=== PATIENT | female | born 1990 | race Caucasian/White ===

== ENCOUNTER → 2023-10-23 07:03 | Outpatient (REF) | payer OTHER, SELFPAY | LOC: PNTC 07:03 | PROVIDERS: ATTENDING PHYSICIAN Obstetrics & Gynecology | DX: O99.210 Obesity complicating pregnancy, unspecified trimester (principal); O43.219 Placenta accreta, unspecified trimester | CPT/HCPCS: 76811; 93976 ==

== ENCOUNTER 2023-11-19 10:47 | Observation (INO) | payer OTHER, SELFPAY ==
[2023-11-19 11:09] VITALS: BP 123/72; BMI 38.0
== END 2023-11-19 12:12 | disposition home or self-care (01) ==
LOC: LDRP 10:47
PROVIDERS: ADMITTING PHYSICIAN Obstetrics & Gynecology; FAMILY PHYSICIAN Family Medicine
DX: O36.8120 Decreased fetal movements, second trimester, not applicable or unspecified (principal); Z3A.24 24 weeks gestation of pregnancy
CPT/HCPCS: G0378

== ENCOUNTER → 2023-11-29 07:11 | Outpatient (REF) | payer OTHER, SELFPAY | LOC: PNTC 07:11 | PROVIDERS: ATTENDING PHYSICIAN Obstetrics & Gynecology | DX: O34.10 Maternal care for benign tumor of corpus uteri, unspecified trimester (principal); O99.210 Obesity complicating pregnancy, unspecified trimester | CPT/HCPCS: 76816 ==

== ENCOUNTER → 2024-01-17 07:06 | Outpatient (REF) | payer OTHER, SELFPAY | LOC: PNTC 07:06 | PROVIDERS: ATTENDING PHYSICIAN Obstetrics & Gynecology | DX: O34.10 Maternal care for benign tumor of corpus uteri, unspecified trimester (principal); O99.210 Obesity complicating pregnancy, unspecified trimester | CPT/HCPCS: 76816 ==

== ENCOUNTER → 2024-01-24 07:05 | Outpatient (REF) | payer OTHER, SELFPAY | LOC: PNTC 07:05 | PROVIDERS: ATTENDING PHYSICIAN Obstetrics & Gynecology | DX: O34.10 Maternal care for benign tumor of corpus uteri, unspecified trimester (principal); O99.210 Obesity complicating pregnancy, unspecified trimester | CPT/HCPCS: 59025; 76815 ==

== ENCOUNTER → 2024-01-31 07:14 | Outpatient (REF) | payer OTHER, SELFPAY | LOC: PNTC 07:14 | PROVIDERS: ATTENDING PHYSICIAN Obstetrics & Gynecology | DX: O99.210 Obesity complicating pregnancy, unspecified trimester (principal) | CPT/HCPCS: 59025; 76815 ==

== ENCOUNTER → 2024-02-07 07:08 | Outpatient (REF) | payer OTHER, SELFPAY | LOC: PNTC 07:08 | PROVIDERS: ATTENDING PHYSICIAN Obstetrics & Gynecology | DX: O99.210 Obesity complicating pregnancy, unspecified trimester (principal); O34.10 Maternal care for benign tumor of corpus uteri, unspecified trimester | CPT/HCPCS: 59025; 76815 ==

== ENCOUNTER → 2024-02-14 16:37 | Outpatient (REF) | payer OTHER, SELFPAY | LOC: PNTC 16:37 | PROVIDERS: ATTENDING PHYSICIAN Obstetrics & Gynecology | DX: O99.210 Obesity complicating pregnancy, unspecified trimester (principal) | CPT/HCPCS: 59025 ==

== ENCOUNTER → 2024-02-21 07:14 | Outpatient (REF) | payer OTHER, SELFPAY | LOC: PNTC 07:14 | PROVIDERS: ATTENDING PHYSICIAN Obstetrics & Gynecology | DX: O99.210 Obesity complicating pregnancy, unspecified trimester (principal); O34.10 Maternal care for benign tumor of corpus uteri, unspecified trimester | CPT/HCPCS: 36415; 59025; 76815 ==

== ENCOUNTER 2024-02-28 06:23 | Inpatient (IN) | payer OTHER, SELFPAY ==
[2024-02-28] MEDS: LR 1000 IV ×4 (06:55→23:00)
[2024-02-28 07:02] VITALS: BP 125/72; BMI 40.2
[2024-02-28 11:54] LABS: % Basophils 0.2 % (0-2); % Eosinophils 1.2 % (0-6); % Immature Granulocytes 0.8 % (0-0.5); % Monocytes 6.3 % (1.7-9.3); % Neutrophils 69.5 % (42.2-75.2); Absolute Eosinophils 0.1 10^3/uL (0-0.7); Absolute Immature Granulocytes 0.1 10^3/uL (0-0.05); Absolute Lymphocytes 2.3 10^3/uL (1.2-3.4); Absolute Monocytes 0.7 10^3/uL (0.1-0.6); Absolute Neutrophils 7.2 10^3/uL (1.4-6.5); Hematocrit 33.4 % (37.0-47.0); Hemoglobin 10.8 g/dL (12.0-16.0); Mean Corp Hgb Conc. 32.3 g/dL (33.0-37.0); Mean Corpuscular Hgb 27.8 pg (27.0-31.0); Mean Corpuscular Volume 85.9 fL (81.0-99.0); Mean Platelet Volume 11.5 fL (7.4-10.4); Nucleated Red Blood Cells % 0 %; Platelet Count 179 10^3/uL (130-400); Red Blood Cell Count 3.89 10^6/uL (4.20-5.40); Red Cell Dist. Width 14.6 % (11.5-14.5); White Blood Cell Count 10.3 10^3/uL (4.8-10.8)
[2024-02-28] MEDS: PENICILLIN 110 UNITS IV (12:48)
[2024-02-28] MEDS: PENICILLIN 55 UNITS IV ×2 (17:01→21:06)
[2024-02-28] MEDS: PITOCIN 30 UNITS/NSS 500 ML IV (17:25)
[2024-02-28] MEDS: FENTANYL/BUPIVACAINE 100 EPIDURAL (20:12)
[2024-02-28] MEDS: SUBLIMAZE 100 MCG EPIDURAL (20:12)
[2024-02-29] MEDS: BICITRA 30 ML PO (00:18)
[2024-02-29] MEDS: TYLENOL 1000 MG PO (00:18)
[2024-02-29] MEDS: ZITHROMAX INFUSION 250 IV (00:18)
[2024-02-29] MEDS: ANCEF 15 MG IV (00:29)
[2024-02-29] MEDS: ANCEF 10 IV (00:33)
[2024-02-29 01:38] VITALS: BP 125/72; BP 135/73; BP 93/62
[2024-02-29 01:45] VITALS: BP 135/73
[2024-02-29 02:00] VITALS: BP 120/70
[2024-02-29] MEDS: ROXICODONE 10 MG PO (02:02)
[2024-02-29] MEDS: PENICILLIN IV (02:03)
[2024-02-29 02:15] VITALS: BP 123/66
[2024-02-29] MEDS: PITOCIN 30 UNITS/NSS 500 ML IV (02:30)
[2024-02-29] MEDS: TORADOL 15 MG IV ×3 (07:54→19:50)
[2024-02-29] MEDS: PRENATAL PLUS 1 TABLET PO (07:54)
--- NOTE | 2024-02-29 08:02 | W.PN.ANS.POP ---
Anesthesia Post Operative
- Anesthesia Post Op Note
Vital Signs Stable-See Nursing Note: Yes
Airway Patent: Yes
Adequate Pain Control: Yes
Change in Mental Status: No
Current Postoperative Nausea & Vomiting: No
Anesthesia Complications: No
General Anesthetic Recall: No
Unplanned Admission: No
Post Op Hydration Adequate: Yes
[2024-02-29] MEDS: PERCOCET 5/325 1 TABLET PO (10:13)
[2024-03-01] MEDS: TORADOL 15 MG IV (01:40)
[2024-03-01 02:02] LABS: Hematocrit 25.1 % (37.0-47.0); Hemoglobin 8.2 g/dL (12.0-16.0); Mean Corp Hgb Conc. 32.7 g/dL (33.0-37.0); Mean Corpuscular Hgb 28.5 pg (27.0-31.0); Mean Corpuscular Volume 87.2 fL (81.0-99.0); Platelet Count 142 10^3/uL (130-400); Red Blood Cell Count 2.88 10^6/uL (4.20-5.40); Red Cell Dist. Width 14.6 % (11.5-14.5); White Blood Cell Count 10.1 10^3/uL (4.8-10.8)
[2024-03-01] MEDS: PERCOCET 5/325 1 TABLET PO ×3 (05:43→21:00)
[2024-03-01] MEDS: PRENATAL PLUS 1 TABLET PO (09:04)
[2024-03-01] MEDS: MOTRIN 600 MG PO ×3 (09:09→21:01)
[2024-03-01] MEDS: TYLENOL 650 MG PO ×2 (09:09→15:22)
[2024-03-01] MEDS: SENOKOT-S 1 TABLET PO (09:10)
[2024-03-01] MEDS: FEOSOL 325 MG PO (11:55)
[2024-03-02] MEDS: MOTRIN 600 MG PO ×4 (02:51→21:25)
[2024-03-02] MEDS: PERCOCET 5/325 1 TABLET PO ×4 (02:51→21:25)
[2024-03-02] MEDS: SENOKOT-S 1 TABLET PO (08:20)
[2024-03-02] MEDS: FEOSOL 325 MG PO (08:20)
[2024-03-02] MEDS: PRENATAL PLUS 1 TABLET PO (08:20)
[2024-03-03] MEDS: PERCOCET 5/325 1 TABLET PO ×2 (03:33→10:48)
[2024-03-03] MEDS: MOTRIN 600 MG PO ×2 (03:33→10:48)
[2024-03-03] MEDS: PRENATAL PLUS 1 TABLET PO (08:23)
[2024-03-03] MEDS: FEOSOL 325 MG PO (08:23)
[2024-03-03] MEDS: SENOKOT-S 1 TABLET PO (08:31)
--- NOTE | 2024-03-03 15:07 | W.DS.TRANS ---
DC Summary - Office Technician
-
Discharge Instructions:
Discharge Diagnosis/Procedures section
Instructions:
Stand-Alone Forms: LDRP Delivery
Changes to Home Medications: No
Discharge Medications:
DC Medications w/original date entered in [facility]
vitamin-ferrous fumarate 28 mg iron-folic acid 800 mcg tablet ( Tablet) 1 tab PO DAILY Supplement 11/19/23
acetaminophen 325 mg tablet 650 mg (2 x 325 mg) PO Q4HPRN PRN mild pain #0 tabs 03/03/24
ferrous sulfate 325 mg (65 mg iron) tablet (FeroSul) 325 mg PO DAILY #0 tabs 03/03/24
ibuprofen 600 mg tablet 600 mg PO Q6HPRN PRN cramps #45 tabs 03/03/24
oxycodone-acetaminophen 5 mg-325 mg tablet 1 tab PO Q4HPRN PRN moderate pain #10 tabs 03/03/24
sennosides 8.6 mg-docusate sodium 50 mg tablet (Stool Softener-Laxative) 1 tab PO DAILYPRN PRN constipation #0 tabs 03/03/24
Home Medication Changes
Pending Results: No
[2024-03-04 09:57] LABS: Syphilis/T. pallidum Ab Reflex Negative (Negative)
== END 2024-03-03 14:52 | disposition home or self-care (01) | DRG 788 ==
LOC: LDRP 06:23
PROVIDERS: Obstetrics & Gynecology; ADMITTING PHYSICIAN Obstetrics & Gynecology
PROC: 10D00Z1 Extraction of Products of Conception, Low, Open Approach (ICD-10-PCS; 2024-02-29)
DX: O99.824 Streptococcus B carrier state complicating childbirth (principal); Z3A.39 39 weeks gestation of pregnancy; Z37.0 Single live birth; D25.9 Leiomyoma of uterus, unspecified; N83.292 Other ovarian cyst, left side; Z80.8 Family history of malignant neoplasm of other organs or systems; O76 Abnormality in fetal heart rate and rhythm complicating labor and delivery; O63.9 Long labor, unspecified
CPT/HCPCS: 88307; 85025; 85027; 86780; 86850; 86900; 86901

== ENCOUNTER → 2024-05-19 14:07 | Outpatient (REF) | payer OTHER, SELFPAY | LOC: HWRAD 14:07 | PROVIDERS: ATTENDING PHYSICIAN Obstetrics & Gynecology; FAMILY PHYSICIAN Family Medicine | DX: N83.202 Unspecified ovarian cyst, left side (principal) | CPT/HCPCS: 76830; 76856 ==

== ENCOUNTER 2024-07-29 07:04 | Day surgery (SDC) | payer OTHER, SELFPAY ==
[2024-07-24 08:45] LABS: % Basophils 0.4 % (0-2); % Eosinophils 2.5 % (0-6); % Immature Granulocytes 0.5 % (0-0.5); % Lymphocytes 38.2 % (20.5-51.1); % Monocytes 5.7 % (1.7-9.3); % Neutrophils 52.7 % (42.2-75.2); Absolute Eosinophils 0.2 10^3/uL (0-0.7); Absolute Lymphocytes 3.2 10^3/uL (1.2-3.4); Absolute Monocytes 0.5 10^3/uL (0.1-0.6); Absolute Neutrophils 4.4 10^3/uL (1.4-6.5); Hematocrit 39.2 % (37.0-47.0); Hemoglobin 12.2 g/dL (12.0-16.0); Mean Corp Hgb Conc. 31.1 g/dL (33.0-37.0); Mean Corpuscular Hgb 26.8 pg (27.0-31.0); Mean Corpuscular Volume 86.2 fL (81.0-99.0); Mean Platelet Volume 10.9 fL (7.4-10.4); Nucleated Red Blood Cells % 0 %; Platelet Count 236 10^3/uL (130-400); Red Blood Cell Count 4.55 10^6/uL (4.20-5.40); Red Cell Dist. Width 13.2 % (11.5-14.5); White Blood Cell Count 8.4 10^3/uL (4.8-10.8)
[2024-07-24 09:37] LABS: Blood Urea Nitrogen 13 mg/dl (7-17); Calcium 9.5 mg/dl (8.4-10.2); Carbon Dioxide 24 mmol/L (22-30); Chloride 104 mmol/L (98-107); Glucose 80 mg/dl (70-99); Potassium 4.4 mmol/L (3.5-5.1); Sodium 140 mmol/L (135-145); eGFR > 60.00
[2024-07-24 09:54] LABS: Beta HCG Quantitative < 2.39 mIU/ml
[2024-07-24 10:10] VITALS: BMI 36.0
[2024-07-29] VITALS (11 sets, daily range): BP systolic 105–123; BP diastolic 57–78; BMI 36.0
[2024-07-29] MEDS: HEPARIN 5000 UNITS SC (10:00)
--- NOTE | 2024-07-29 10:03 | W.SUR.PREOP ---
Pre-Operative Surgical Note
-
I have examined this patient prior to the performance of the scheduled procedure.
The patient's condition is unchanged from the time of the current History and
Physical and the patient is able to undergo the scheduled procedure.
--- NOTE | 2024-07-29 12:22 | W.IMMPOSTOP ---
Surgical Immed Post Op Note
-
Primary Surgeon: Sue Baca DO
Cost Specialist: ENDY Frederick
Pre-op Diagnosis: Persistent left ovarian cyst
Post-op Diagnosis: same
Procedure Performed: Robotic laparoscopic left ovarian cystectomy
Anesthesia Type: general ET Dr. Guerra
Specimen / Cultures: left ovarian cyst wall
Estimated Blood Loss: 5ml
Complications: small perforation of uterus from manipulator-sutured
Operative Findings: Normal appearing uterus, tubes and fallopian tubes. Left ovary with 4.5 cm simple cyst. Right ovary with 2 cm corpus luteal cyst.
Stable to recovery.
[2024-07-29] MEDS: DILAUDID 0.5 MG IV (12:52)
[2024-07-29] MEDS: ROXICODONE 5 MG PO (14:59)
== END 2024-07-29 15:42 | disposition home or self-care (01) ==
LOC: SDS 07:04
PROVIDERS: ATTENDING PHYSICIAN Obstetrics & Gynecology; FAMILY PHYSICIAN Family Medicine
DX: D27.1 Benign neoplasm of left ovary (principal); D25.9 Leiomyoma of uterus, unspecified; N94.11 Superficial (introital) dyspareunia
CPT/HCPCS: 58662; 88304; 36415; 80048; 84702; 85025; 86850; 86900; 86901; 88341; 88342

== ENCOUNTER → 2024-12-17 12:38 | Outpatient (REF) | payer OTHER, SELFPAY | LOC: RAD 12:38 | PROVIDERS: ATTENDING PHYSICIAN Nurse Practitioner Family | DX: R05.3 Chronic cough (principal) | CPT/HCPCS: 71046 ==

== ENCOUNTER → 2025-07-14 10:14 | Outpatient (REF) | payer OTHER, SELFPAY | LOC: PNTC 10:14 | PROVIDERS: ATTENDING PHYSICIAN Obstetrics & Gynecology | DX: Z36.0 Encounter for antenatal screening for chromosomal anomalies (principal); Z36.83 Encounter for fetal screening for congenital cardiac abnormalities | CPT/HCPCS: 76801; 76813 ==

== ENCOUNTER → 2025-08-06 08:17 | Outpatient (REF) | payer OTHER, SELFPAY | LOC: PNTC 08:17 | PROVIDERS: ATTENDING PHYSICIAN Obstetrics & Gynecology | DX: O99.210 Obesity complicating pregnancy, unspecified trimester (principal); Z98.891 History of uterine scar from previous surgery | CPT/HCPCS: 76805 ==

== ENCOUNTER → 2025-09-01 15:26 | Outpatient (REF) | payer OTHER, SELFPAY | LOC: PNTC 15:26 | PROVIDERS: ATTENDING PHYSICIAN Obstetrics & Gynecology | DX: O99.212 Obesity complicating pregnancy, second trimester (principal); O34.219 Maternal care for unspecified type scar from previous cesarean delivery | CPT/HCPCS: 76811; 76817 ==